=== PATIENT | male | born 1955 | race African-American/Black ===

== ENCOUNTER 2021-08-01 00:01 | Inpatient (IN) | payer OTHER, BC ==
[2021-08-01] MEDS ORDERED: VANCOMYCIN 1 GM in D5W (PRE-DOCKED) 1,000 MG/250 ML IVPB ONE (02:53)
[2021-08-01] MEDS ORDERED: VANCOMYCIN HCL 1,500 MG in DEXTROSE 5%-WATER - 500 ML IVPB ONE (02:54)
[2021-08-01] MEDS ORDERED: CEFEPIME HCL/D5W 1 GM/50 ML BAG IVPB ONE (02:54)
[2021-08-01] MEDS ORDERED: ACETAMINOPHEN 1000 MG/100 ML BAG IVPB ONE (02:59)
[2021-08-01] MEDS ORDERED: VANCOMYCIN PREMIX 1.5 GM 1,500 MG/300 ML BAG IVPB ONE (03:23)
[2021-08-01 04:39] LABS: BASO % 0.2 % (0-2.0); EOS % 0.8 % (0-4.5); HEMOGLOBIN 12.3 GM/dL (11.7-16.9); LYMPH % 5.6 % (8-40); MCH 32.9 pg (25.7-33.7); MCHC 33.1 g/dl (32.0-35.9); MEAN CELL VOLUME 99.2 fl (80-96); MEAN PLT VOLUME 9.2 fl (7.5-11.1); MONO % 6.9 % (3.8-10.2); NEUT % 86.5 % (42.8-82.8); PLATELET COUNT 104 10^3/uL (134-434); RBC 3.73 M/mm3 (4.00-5.60); RDW 15.7 % (11.9-15.9); WHITE BLOOD COUNT 8.2 K/mm3 (4.0-10.0)
[2021-08-01 04:40] LABS: VENOUS BASE EXCESS -0.1 mmol/L (-2-2); VENOUS O2 SATURATION 69.1 % (70-80); VENOUS PCO2 53.4 mmHg (38-52); VENOUS PH 7.32 (7.310-7.410)
[2021-08-01 04:45] LABS: INR 1.19 (0.83-1.09); PROTHROMBIN TIME (PATIENT) 13.7 SEC (9.7-13.0)
[2021-08-01] MEDS ORDERED: ACETAMINOPHEN INJECTION 100 ML IVPB ONE (04:45)
[2021-08-01] MEDS ORDERED: CEFEPIME 1 GM/100 ML BAG IVPB ONE (04:46)
[2021-08-01 04:48] LABS: ACTIVATED PTT 31.2 SECONDS (25.2-36.5)
[2021-08-01 04:59] LABS: CHLORIDE 89 mmol/L (98-107); SODIUM 130 mmol/L (136-145)
[2021-08-01 05:02] LABS: ALBUMIN 2.2 g/dl (3.4-5.0); BLOOD UREA NITROGEN 39.4 mg/dL (7-18); CALCIUM 7.3 mg/dL (8.5-10.1); CO2 29 mmol/L (21-32); GLUCOSE,RANDOM 122 mg/dL (74-106)
[2021-08-01 05:05] LABS: SGOT/AST 17 U/L (15-37); SGPT/ALT 30 U/L (13-61)
[2021-08-01 05:07] LABS: BILIRUBIN,TOTAL 0.6 mg/dL (0.2-1); TOT PROT 6.2 g/dl (6.4-8.2)
[2021-08-01 05:08] LABS: ALK PHOS 143 U/L (45-117)
[2021-08-01 05:18] LABS: ANION GAP 12 MMOL/L (8-16); CREATININE 9.7 mg/dL (0.55-1.3)
[2021-08-01] MEDS ORDERED: POTASSIUM CHLORIDE TABS 20 MEQ TABLET.ER (FP) PO ONE ×4 (05:23→20:15)
[2021-08-01 06:03] LABS: MAGNESIUM 1.4 mg/dL (1.8-2.4)
[2021-08-01 06:07] LABS: PHOSPHOROUS 4.9 mg/dL (2.5-4.9)
[2021-08-01] MEDS ORDERED: MAGNESIUM 2GM/50ML STERILE WATER IVPB IVPB ONE (10:30)
[2021-08-01] MEDS ORDERED: ALBUTEROL SO4 0.083% IH SOL 2.5 MG/3 ML VIAL.NEB. NEB PRN (10:39)
[2021-08-01] MEDS ORDERED: PATIENT'S OWN MEDICATION (NON-FORMULARY) (Mometasone/Formoterol [Dulera 100 Mcg-5 Mcg Inha IH SCH (11:00)
[2021-08-01] MEDS: TIOTROPIUM BROMIDE 2.5 MCG (SPIRIVA) RESPIMAT INHALER IH SCH (11:11)
[2021-08-01] MEDS: LOSARTAN POTASSIUM 50 MG TABLET PO SCH (11:11)
[2021-08-01] MEDS: POLYETHYLENE GLYCOL (HEALTHYLAX) 3350 17 GM PACKET PO SCH (11:12)
[2021-08-01] MEDS: INSULIN SLIDING SCALE (NOVOLOG) 1 VIAL SQ SCH ×3 (11:29→21:48)
[2021-08-01] MEDS: HEPARIN NA (PORCINE) 5,000 UNITS/ML 1ML VIAL SQ SCH ×2 (13:23→21:47)
[2021-08-01] MEDS: SEVELAMER CARBONATE 800 MG TAB (FP) PO SCH ×2 (13:23→21:56)
[2021-08-01] MEDS: MUPIROCIN CA 2% TOPICAL CREAM 15 GM TUBE TP SCH (13:24)
[2021-08-01] MEDS: ERYTHROMYCIN 0.5% OPHTHALMIC OINTMENT 3.5 GM TUBE OS SCH ×3 (13:24→21:47)
[2021-08-01] MEDS: BUDESONIDE/FORMETEROL FUMARATE 80/4.5 mcg INHALER IH SCH ×2 (13:24→21:59)
[2021-08-01] MEDS: MOMETASONE FUROATE 220 MCG/IH INHALER IH SCH (13:25)
[2021-08-01] MEDS: KCL 10 MEQ IVPB 10 MEQ/100 ML INFUS.BAG IVPB SCH ×2 (14:05→16:31)
[2021-08-01 16:06] LABS: CHLORIDE 89 mmol/L (98-107); SODIUM 125 mmol/L (136-145)
[2021-08-01 16:08] LABS: CALCIUM 7.1 mg/dL (8.5-10.1)
[2021-08-01 16:09] LABS: BLOOD UREA NITROGEN 40.9 mg/dL (7-18); CO2 24 mmol/L (21-32); GLUCOSE,RANDOM 107 mg/dL (74-106)
[2021-08-01 16:11] LABS: ANION GAP 12 MMOL/L (8-16)
[2021-08-01 16:15] LABS: CREATININE 9.5 mg/dL (0.55-1.3)
[2021-08-01] MEDS ORDERED: SODIUM CHLORIDE 500 ML IV STA (16:30)
[2021-08-01] MEDS ORDERED: SODIUM ZIRCONIUM CYCLOSILICATE (LOKELMA) 5 GM PACKET PO ONE (16:31)
[2021-08-01] MEDS: PERITONEAL DIALYSIS 2.5% IVPB SCH (16:55)
[2021-08-01] MEDS: CEFEPIME IVPB SCH (16:55)
[2021-08-01 18:34] LABS: EPI CELLS 1 /uL (0-25.1); HYALINE CASTS 1 /uL (0-3.1); URINE APPEARANCE CLOUDY; URINE BACTERIA 69 /uL (0-1359); URINE BILIRUBIN NEGATIVE (NEGATIVE); URINE COLOR YELLOW; URINE GLUCOSE (UA) 2+ (NEGATIVE); URINE KETONE NEGATIVE (NEGATIVE); URINE LEUK ESTERASE 2+ (NEGATIVE); URINE NITRITE NEGATIVE (NEGATIVE); URINE PROTEIN 4+ (NEGATIVE); URINE RBC 61 /uL (0-23.9); URINE UROBILINOGEN 0.2 mg/dL (0.2-1.0); URINE WBC 1074 /uL (0-25.8)
[2021-08-01] MEDS: GABAPENTIN 100 MG CAPSULE PO SCH (21:47)
[2021-08-01] MEDS: PERITONEAL DIALYSIS 2.5% SOLN 2,500 ML IP SCH (23:29)
[2021-08-02] MEDS: PERITONEAL DIALYSIS 2.5% SOLN 2,500 ML IP SCH ×3 (05:04→18:11)
[2021-08-02] MEDS: SEVELAMER CARBONATE 800 MG TAB (FP) PO SCH ×3 (06:40→21:28)
[2021-08-02] MEDS: HEPARIN NA (PORCINE) 5,000 UNITS/ML 1ML VIAL SQ SCH ×3 (06:40→21:28)
[2021-08-02] MEDS: INSULIN SLIDING SCALE (NOVOLOG) 1 VIAL SQ SCH ×4 (06:46→21:28)
[2021-08-02] MEDS: LOSARTAN POTASSIUM 50 MG TABLET PO SCH (10:41)
[2021-08-02] MEDS: MOMETASONE FUROATE 220 MCG/IH INHALER IH SCH (10:41)
[2021-08-02] MEDS: POLYETHYLENE GLYCOL (HEALTHYLAX) 3350 17 GM PACKET PO SCH (10:41)
[2021-08-02] MEDS: BUDESONIDE/FORMETEROL FUMARATE 80/4.5 mcg INHALER IH SCH ×2 (10:41→21:29)
[2021-08-02] MEDS: ERYTHROMYCIN 0.5% OPHTHALMIC OINTMENT 3.5 GM TUBE OS SCH ×4 (10:41→21:29)
[2021-08-02] MEDS: CALCITRIOL 0.25 MCG CAPSULE (FP) PO SCH (10:41)
[2021-08-02] MEDS: TIOTROPIUM BROMIDE 2.5 MCG (SPIRIVA) RESPIMAT INHALER IH SCH (10:42)
[2021-08-02] MEDS: CINACALCET HCL 30 MG TAB (FP) PO SCH (10:55)
[2021-08-02] MEDS ORDERED: CALCITRIOL 0.5 MCG PO SCH (11:00)
[2021-08-02] MEDS ORDERED: CALCITRIOL 0.25 MCG CAPSULE (FP) PO SCH (11:00)
[2021-08-02 11:48] LABS: BASO % 0.3 % (0-2.0); EOS % 2.5 % (0-4.5); HEMATOCRIT 35.2 % (35.4-49); HEMOGLOBIN 11.8 GM/dL (11.7-16.9); LYMPH % 5.7 % (8-40); MCHC 33.5 g/dl (32.0-35.9); MEAN CELL VOLUME 98.7 fl (80-96); MEAN PLT VOLUME 9.6 fl (7.5-11.1); MONO % 6.3 % (3.8-10.2); NEUT % 85.2 % (42.8-82.8); PLATELET COUNT 114 10^3/uL (134-434); RBC 3.57 M/mm3 (4.00-5.60); RDW 15.9 % (11.9-15.9)
[2021-08-02 12:09] LABS: CHLORIDE 89 mmol/L (98-107); SODIUM 129 mmol/L (136-145)
[2021-08-02] MEDS: PERITONEAL DIALYSIS 2.5% IVPB SCH (12:12)
[2021-08-02] MEDS: CEFEPIME IVPB SCH (12:12)
[2021-08-02] MEDS: MUPIROCIN CA 2% TOPICAL CREAM 15 GM TUBE TP SCH (12:12)
[2021-08-02 12:20] LABS: BILIRUBIN,TOTAL 0.5 mg/dL (0.2-1)
[2021-08-02 12:21] LABS: ALK PHOS 127 U/L (45-117); SGPT/ALT 25 U/L (13-61)
[2021-08-02 12:22] LABS: PHOSPHOROUS 4.6 mg/dL (2.5-4.9); SGOT/AST 17 U/L (15-37)
[2021-08-02 12:23] LABS: ALBUMIN 2.1 g/dl (3.4-5.0)
[2021-08-02 12:24] LABS: ANION GAP 13 MMOL/L (8-16); BLOOD UREA NITROGEN 43.7 mg/dL (7-18); CO2 28 mmol/L (21-32); GLUCOSE,RANDOM 168 mg/dL (74-106); MAGNESIUM 1.9 mg/dL (1.8-2.4)
[2021-08-02 12:27] LABS: CALCIUM 7.3 mg/dL (8.5-10.1)
[2021-08-02 12:35] LABS: TOT PROT 5.9 g/dl (6.4-8.2)
[2021-08-02 13:00] LABS: CREATININE 10.3 mg/dL (0.55-1.3)
[2021-08-02] MEDS: POTASSIUM CHLORIDE TABS 20 MEQ TABLET.ER (FP) PO SCH ×2 (13:21→21:28)
[2021-08-02 14:09] LABS: BF WBC & OTHER NUCLEATED CELLS 393 /mm3; BODY FLUID MACROPHAGES 3 %; BODY FLUID MESOTHELIAL 2 %; BODY FLUID MONOCYTE 8 %; BODYL FLD EOSINOPHIL 2 %
[2021-08-02 15:11] VITALS: BMI 38.1
[2021-08-02] MEDS: GABAPENTIN 100 MG CAPSULE PO SCH (21:28)
[2021-08-02] MEDS ORDERED: metoPROLOL SUCCINATE 25 MG TAB.SR.24H (FP) PO SCH (22:00)
[2021-08-02] MEDS ORDERED: ALBUTEROL SO4 HFA INHALER IH PRN (23:20)
[2021-08-03] MEDS: PERITONEAL DIALYSIS 2.5% SOLN 2,500 ML IP SCH ×2 (00:05→06:16)
[2021-08-03] MEDS: HEPARIN NA (PORCINE) 5,000 UNITS/ML 1ML VIAL SQ SCH ×3 (06:16→21:15)
[2021-08-03] MEDS: INSULIN SLIDING SCALE (NOVOLOG) 1 VIAL SQ SCH ×4 (06:16→21:15)
[2021-08-03] MEDS: SEVELAMER CARBONATE 800 MG TAB (FP) PO SCH ×3 (08:11→17:44)
[2021-08-03 08:29] LABS: BASO % 0.4 % (0-2.0); EOS % 5.1 % (0-4.5); MCH 33.3 pg (25.7-33.7); MCHC 33.4 g/dl (32.0-35.9); MEAN CELL VOLUME 99.9 fl (80-96); MONO % 8.5 % (3.8-10.2); PLATELET COUNT 131 10^3/uL (134-434); RDW 15.9 % (11.9-15.9)
[2021-08-03 08:51] LABS: CHLORIDE 90 mmol/L (98-107); SODIUM 129 mmol/L (136-145)
[2021-08-03 08:53] LABS: BLOOD UREA NITROGEN 45.3 mg/dL (7-18); CO2 28 mmol/L (21-32); GLUCOSE,RANDOM 180 mg/dL (74-106); MAGNESIUM 1.7 mg/dL (1.8-2.4)
[2021-08-03 08:56] LABS: PHOSPHOROUS 4.4 mg/dL (2.5-4.9)
[2021-08-03 08:59] LABS: ANION GAP 12 MMOL/L (8-16); CALCIUM 6.6 mg/dL (8.5-10.1); CREATININE 10.1 mg/dL (0.55-1.3)
[2021-08-03] MEDS ORDERED: POTASSIUM CHLORIDE TABS 20 MEQ TABLET.ER (FP) PO ONE (09:13)
[2021-08-03] MEDS ORDERED: MAGNESIUM SULF 50% (8.12 MEQ/2 ML-1 GM VIAL) IVPB ONE (09:14)
[2021-08-03] MEDS: LOSARTAN POTASSIUM 50 MG TABLET PO SCH (09:20)
[2021-08-03] MEDS: ERYTHROMYCIN 0.5% OPHTHALMIC OINTMENT 3.5 GM TUBE OS SCH ×4 (09:20→21:15)
[2021-08-03] MEDS: MOMETASONE FUROATE 220 MCG/IH INHALER IH SCH (09:20)
[2021-08-03] MEDS: CINACALCET HCL 30 MG TAB (FP) PO SCH (09:20)
[2021-08-03] MEDS: BUDESONIDE/FORMETEROL FUMARATE 80/4.5 mcg INHALER IH SCH ×2 (09:21→21:15)
[2021-08-03] MEDS: CALCITRIOL 0.25 MCG CAPSULE (FP) PO SCH (09:21)
[2021-08-03] MEDS: TIOTROPIUM BROMIDE 2.5 MCG (SPIRIVA) RESPIMAT INHALER IH SCH (09:21)
[2021-08-03] MEDS: POLYETHYLENE GLYCOL (HEALTHYLAX) 3350 17 GM PACKET PO SCH (09:21)
[2021-08-03] MEDS ORDERED: SODIUM CHLORIDE NASAL SPRAY 44 ML BOTTLE NS PRN (09:33)
[2021-08-03] MEDS ORDERED: POTASSIUM CHLORIDE ORAL LIQUID 20 MEQ/15 ML PO ONE (10:15)
[2021-08-03] MEDS: POTASSIUM CHLORIDE TABS 20 MEQ TABLET.ER (FP) PO SCH (10:33)
[2021-08-03] MEDS: MUPIROCIN CA 2% TOPICAL CREAM 15 GM TUBE TP SCH (11:48)
[2021-08-03] MEDS: PERITONEAL DIALYSIS 2.5% IVPB SCH (11:49)
[2021-08-03] MEDS: CEFEPIME IVPB SCH (11:49)
[2021-08-03] MEDS: PERITONEAL DIALYSIS 4.25% SOL 2,500 ML IP SCH (18:31)
[2021-08-03] MEDS: GABAPENTIN 100 MG CAPSULE PO SCH (21:14)
[2021-08-03] MEDS: POTASSIUM CHLORIDE ORAL LIQUID 20 MEQ/15 ML PO SCH (21:14)
[2021-08-03] MEDS ORDERED: POTASSIUM CHLORIDE ORAL LIQUID 20 MEQ/15 ML PO SCH (22:00)
[2021-08-04] MEDS: PERITONEAL DIALYSIS 4.25% SOL 2,500 ML IP SCH ×2 (00:06→06:07)
[2021-08-04] MEDS: HEPARIN NA (PORCINE) 5,000 UNITS/ML 1ML VIAL SQ SCH ×3 (06:07→22:42)
[2021-08-04] MEDS: INSULIN SLIDING SCALE (NOVOLOG) 1 VIAL SQ SCH ×4 (06:14→22:39)
[2021-08-04] MEDS: SEVELAMER CARBONATE 800 MG TAB (FP) PO SCH ×3 (08:48→17:06)
[2021-08-04] MEDS: POTASSIUM CHLORIDE ORAL LIQUID 20 MEQ/15 ML PO SCH ×2 (09:09→22:39)
[2021-08-04] MEDS: LOSARTAN POTASSIUM 50 MG TABLET PO SCH (09:09)
[2021-08-04] MEDS: CINACALCET HCL 30 MG TAB (FP) PO SCH (09:09)
[2021-08-04] MEDS: POLYETHYLENE GLYCOL (HEALTHYLAX) 3350 17 GM PACKET PO SCH (09:10)
[2021-08-04] MEDS: ERYTHROMYCIN 0.5% OPHTHALMIC OINTMENT 3.5 GM TUBE OS SCH ×4 (09:17→22:42)
[2021-08-04] MEDS: MOMETASONE FUROATE 220 MCG/IH INHALER IH SCH (09:17)
[2021-08-04] MEDS: BUDESONIDE/FORMETEROL FUMARATE 80/4.5 mcg INHALER IH SCH ×2 (09:17→22:38)
[2021-08-04] MEDS: TIOTROPIUM BROMIDE 2.5 MCG (SPIRIVA) RESPIMAT INHALER IH SCH (09:17)
[2021-08-04] MEDS: CALCITRIOL 0.25 MCG CAPSULE (FP) PO SCH (10:38)
[2021-08-04 11:52] LABS: HEMATOCRIT 35.9 % (35.4-49); HEMOGLOBIN 11.6 GM/dL (11.7-16.9); MCH 32.6 pg (25.7-33.7); MCHC 32.2 g/dl (32.0-35.9); MEAN CELL VOLUME 101.1 fl (80-96); MEAN PLT VOLUME 9.5 fl (7.5-11.1); PLATELET COUNT 153 10^3/uL (134-434); RBC 3.55 M/mm3 (4.00-5.60); RDW 15.8 % (11.9-15.9); WHITE BLOOD COUNT 5.9 K/mm3 (4.0-10.0)
[2021-08-04 12:10] LABS: CHLORIDE 92 mmol/L (98-107); SODIUM 131 mmol/L (136-145)
[2021-08-04 12:14] LABS: GLUCOSE,RANDOM 171 mg/dL (74-106)
[2021-08-04 12:15] LABS: ALBUMIN 2.3 g/dl (3.4-5.0); ANION GAP 10 MMOL/L (8-16); BLOOD UREA NITROGEN 44.3 mg/dL (7-18); CO2 29 mmol/L (21-32); MAGNESIUM 2.1 mg/dL (1.8-2.4)
[2021-08-04 12:18] LABS: PHOSPHOROUS 3.5 mg/dL (2.5-4.9); SGOT/AST 22 U/L (15-37); SGPT/ALT 30 U/L (13-61)
[2021-08-04 12:19] LABS: BILIRUBIN,TOTAL 0.5 mg/dL (0.2-1)
[2021-08-04] MEDS: CEFEPIME IVPB SCH (12:19)
[2021-08-04] MEDS: PERITONEAL DIALYSIS 2.5% IVPB SCH (12:19)
[2021-08-04 12:20] LABS: TOT PROT 6.3 g/dl (6.4-8.2)
[2021-08-04] MEDS: MUPIROCIN CA 2% TOPICAL CREAM 15 GM TUBE TP SCH (12:20)
[2021-08-04 12:21] LABS: ALK PHOS 128 U/L (45-117)
[2021-08-04 12:23] LABS: CALCIUM 6.9 mg/dL (8.5-10.1); CREATININE 9.9 mg/dL (0.55-1.3)
[2021-08-04] MEDS ORDERED: PERITONEAL DIALYSIS 4.25% IP SCH ×2 (16:45→18:00)
[2021-08-04] MEDS ORDERED: VANCOMYCIN IP SCH ×2 (16:45→18:00)
[2021-08-04 22:22] LABS: BF WBC & OTHER NUCLEATED CELLS 81 /mm3
[2021-08-04 22:23] LABS: BODY FLUID MACROPHAGES 1 %; BODY FLUID MESOTHELIAL 1 %; BODY FLUID MONOCYTE 24 %; BODYL FLD EOSINOPHIL 12 %
[2021-08-04] MEDS: GABAPENTIN 100 MG CAPSULE PO SCH (22:38)
[2021-08-05] MEDS ORDERED: PERITONEAL DIALYSIS 4.25% SOL 2,500 ML IP SCH
[2021-08-05] MEDS: HEPARIN NA (PORCINE) 5,000 UNITS/ML 1ML VIAL SQ SCH ×2 (05:16→14:41)
[2021-08-05] MEDS ORDERED: PERITONEAL DIALYSIS 4.25% IP SCH (06:00)
[2021-08-05] MEDS ORDERED: CEFTAZIDIME PENTAHYDRATE IP SCH (06:00)
[2021-08-05] MEDS: INSULIN SLIDING SCALE (NOVOLOG) 1 VIAL SQ SCH ×3 (06:49→16:25)
[2021-08-05] MEDS: SEVELAMER CARBONATE 800 MG TAB (FP) PO SCH ×3 (09:03→17:25)
[2021-08-05] MEDS: BUDESONIDE/FORMETEROL FUMARATE 80/4.5 mcg INHALER IH SCH (09:04)
[2021-08-05] MEDS: CINACALCET HCL 30 MG TAB (FP) PO SCH (09:04)
[2021-08-05] MEDS: POLYETHYLENE GLYCOL (HEALTHYLAX) 3350 17 GM PACKET PO SCH (09:05)
[2021-08-05] MEDS: TIOTROPIUM BROMIDE 2.5 MCG (SPIRIVA) RESPIMAT INHALER IH SCH (09:05)
[2021-08-05] MEDS: MOMETASONE FUROATE 220 MCG/IH INHALER IH SCH (09:05)
[2021-08-05] MEDS: LOSARTAN POTASSIUM 50 MG TABLET PO SCH (09:05)
[2021-08-05] MEDS: ERYTHROMYCIN 0.5% OPHTHALMIC OINTMENT 3.5 GM TUBE OS SCH ×3 (09:05→17:26)
[2021-08-05] MEDS: POTASSIUM CHLORIDE ORAL LIQUID 20 MEQ/15 ML PO SCH (09:08)
[2021-08-05] MEDS ORDERED: ACETAMINOPHEN 1000 MG/100 ML BAG IVPB ONE (09:31)
[2021-08-05] MEDS: CALCITRIOL 0.25 MCG CAPSULE (FP) PO SCH (10:16)
[2021-08-05] MEDS ORDERED: BISACODYL 10 MG SUPP.RECT PR ONE (11:15)
[2021-08-05] MEDS ORDERED: SENNOSIDES 8.6MG TABLET (FP) PO SCH (11:45)
[2021-08-05] MEDS: MUPIROCIN CA 2% TOPICAL CREAM 15 GM TUBE TP SCH (12:27)
[2021-08-05 14:03] LABS: BASO % 0.7 % (0-2.0); EOS % 5.7 % (0-4.5); HEMATOCRIT 34.7 % (35.4-49); HEMOGLOBIN 11.3 GM/dL (11.7-16.9); LYMPH % 12.7 % (8-40); MCH 32.5 pg (25.7-33.7); MCHC 32.4 g/dl (32.0-35.9); MEAN CELL VOLUME 100.3 fl (80-96); MEAN PLT VOLUME 9.2 fl (7.5-11.1); MONO % 11.6 % (3.8-10.2); NEUT % 69.3 % (42.8-82.8); PLATELET COUNT 164 10^3/uL (134-434); RBC 3.46 M/mm3 (4.00-5.60); RDW 15.7 % (11.9-15.9)
[2021-08-05 14:41] LABS: CHLORIDE 95 mmol/L (98-107); SODIUM 130 mmol/L (136-145)
[2021-08-05 14:46] LABS: CALCIUM 7.1 mg/dL (8.5-10.1); GLUCOSE,RANDOM 129 mg/dL (74-106)
[2021-08-05 14:47] LABS: ALBUMIN 2.2 g/dl (3.4-5.0); ANION GAP 9 MMOL/L (8-16); BLOOD UREA NITROGEN 39.2 mg/dL (7-18); CO2 27 mmol/L (21-32); MAGNESIUM 2.1 mg/dL (1.8-2.4)
[2021-08-05 14:50] LABS: PHOSPHOROUS 2.7 mg/dL (2.5-4.9); SGOT/AST 21 U/L (15-37); SGPT/ALT 28 U/L (13-61)
[2021-08-05 14:51] LABS: BILIRUBIN,TOTAL 0.6 mg/dL (0.2-1)
[2021-08-05 14:52] LABS: TOT PROT 6.2 g/dl (6.4-8.2)
[2021-08-05 14:53] LABS: ALK PHOS 123 U/L (45-117)
[2021-08-05 15:01] LABS: CREATININE 9.8 mg/dL (0.55-1.3)
[2021-08-05 15:04] VITALS: BP 114/69; TEMP 98.4
[2021-08-05 15:07] VITALS: PULSE 79
== END 2021-08-05 18:34 | disposition home or self-care (01) | DRG 371 ==
LOC: JER 00:01 → JERBED 05:11 → J7W 09:39 → J4S 15:00
PROVIDERS: ADMIT Internal Medicine; ATTEND Internal Medicine
PROC: 3E1M39Z Irrigation of Peritoneal Cavity using Dialysate, Percutaneous Approach (ICD-10-PCS; principal; 2021-08-04)
DX: K65.2 Spontaneous bacterial peritonitis (principal); N18.6 End stage renal disease; I47.2 Ventricular tachycardia; E87.1 Hypo-osmolality and hyponatremia; R18.8 Other ascites; I13.2 Hypertensive heart and chronic kidney disease with heart failure and with stage 5 chronic kidney disease, or end stage renal disease; I50.42 Chronic combined systolic (congestive) and diastolic (congestive) heart failure; T86.12 Kidney transplant failure; I48.0 Paroxysmal atrial fibrillation; E87.6 Hypokalemia; J45.909 Unspecified asthma, uncomplicated; E11.42 Type 2 diabetes mellitus with diabetic polyneuropathy; N25.0 Renal osteodystrophy; E11.22 Type 2 diabetes mellitus with diabetic chronic kidney disease
CPT/HCPCS: 36415; 71045-TC-FY; 74176-TC; 76700-TC; 76856-TC; 80048; 80053; 81003; 82553; 82803; 82962; 83605; 83735; 84100; 84132; 84443; 85025; 85027; 85610; 85730; 86850; 86900; 86901; 87040; 87070; 87075; 87186; 87205; 93005; 93010; 93306-TC; 94660; 99285-25; C9803-CS; G0480; J1644; U0003; U0005